=== PATIENT | female | born 1945 | race Caucasian/White ===

== ENCOUNTER 2016-06-06 21:01 | Inpatient (IN) | payer BC, OTHER ==
[~2016-06-06] VITALS: Ht 165.1 cm; Wt 70.8 kg
[2016-06-06 21:03] VITALS: BP_SYST 111
--- NOTE | 2016-06-06 21:03 | NUR ---
Patient to ER bed 6 to gown for evaluation. Side rails up. Report given to Yasmeen BUCKLEY.
--- NOTE | 2016-06-06 21:15 | NUR ---
Patient brought to ER by EMT for SOB. Patient has Hx of COPD. Tripoding, accessory mulce use, wheezing throughout, will continue to monitor.
--- NOTE | 2016-06-06 21:19 | NUR ---
ER MD Molina at bedside for evaluation
--- NOTE | 2016-06-06 21:20 | NUR ---
ER MD Molina at bedside for evaluation
[2016-06-06] MEDS ORDERED: methylPREDNISolone SOD SUCC/PF 62.5 MG/ML VIAL IVP ONE (21:30)
[2016-06-06] MEDS ORDERED: IPRATROPIUM/ALBUTEROL SULFATE 3 ML AMPUL.NEB INH ONE (21:30)
[2016-06-06] MEDS ORDERED: MAGNESIUM SULFATE 1 GM/2 ML VIAL IVP ONE (21:30)
[2016-06-06] MEDS ORDERED: MAGNESIUM SULFATE 50 ML IV ONE ×2 (21:43→21:45)
--- NOTE | 2016-06-06 22:00 | NUR ---
RT at bedside for breathing treatment
[2016-06-06] MEDS ORDERED: KETOROLAC TROMETHAMINE 30 MG VIAL IVP ONE (22:15)
[2016-06-06] MEDS ORDERED: FELO10TA3 PO (22:37)
[2016-06-06] MEDS ORDERED: LISI40TA4 PO (22:37)
[2016-06-06] MEDS ORDERED: LIP40 PO (22:38)
[2016-06-06] MEDS ORDERED: TRAZ-126 PO (22:38)
[2016-06-06] MEDS ORDERED: PRED10TA PO (22:39)
[2016-06-06] MEDS ORDERED: SPIRIVA INH (22:40)
[2016-06-06] MEDS ORDERED: BUDE6HFA INH (22:40)
[2016-06-06] MEDS ORDERED: HYDR12.55 PO (22:41)
[2016-06-06] MEDS ORDERED: ALBU8.5H8 INH (22:42)
[2016-06-06] MEDS ORDERED: ALPR0.5T96 PO (22:42)
[2016-06-06] MEDS ORDERED: HYDR-1189 PO (22:43)
[2016-06-06] MEDS ORDERED: ASPIRIN 81 MG TAB.CHEW PO ONE (23:00)
[2016-06-06] MEDS ORDERED: NACL 0.9% 1,000 ML IV ONE (23:00)
--- NOTE | 2016-06-06 23:25 | NUR ---
Jewel Setter at bedside for evaluation. Patient identified x2
--- NOTE | 2016-06-06 23:46 | NUR ---
RT at bedside for ABG draw. Patient identified x2
[2016-06-07] VITALS (8 sets, daily range): BP systolic 135–159
[2016-06-07] MEDS ORDERED: PROMETHAZINE 6.25 MG/ CODEINE 10 MG/ 5 ML PO ONE
[2016-06-07 00:07] LABS: BASOPHILS % (AUTO) 0.2 % (0.0-2.0); EOSINOPHILS # (AUTO) 0.1 K/uL (0.0-0.4); EOSINOPHILS % (AUTO) 0.9 % (0.0-4.0); HEMATOCRIT 35.8 % (36-48); HEMOGLOBIN 12.3 g/dL (12.0-16.0); LYMPHOCYTES # (AUTO) 0.8 K/uL (1.0-5.5); LYMPHOCYTES % (AUTO) 7.7 % (20.5-51.5); MEAN CORPUSCULAR HEMOGLOBIN 33 pg (27-31); MEAN CORPUSCULAR HGB CONC 34 % (32-36); MEAN CORPUSCULAR VOLUME 96 fL (79.0-98.0); MONOCYTES # (AUTO) 0.6 K/uL (0.0-1.0); MONOCYTES % (AUTO) 5.7 % (1.7-9.3); NEUTROPHILS # (AUTO) 8.8 K/uL (1.8-7.7); NEUTROPHILS % (AUTO) 85.5 % (40.0-70.0); PLATELET COUNT (AUTO) 241 K/uL (130-430); RED BLOOD CELL COUNT(AUTO) 3.73 MIL/uL (4.2-6.2); RED CELL DISTRIBUTION WIDTH 13.1 % (9.0-15.0); WHITE BLOOD COUNT (AUTO) 10.3 K/uL (4.8-10.8)
[2016-06-07 00:08] LABS: ABG TOTAL HEMOGLOBIN 13.2 G/dL (12.0-18.0); BLOOD GAS BASE EXCESS 1.4 mmol/L (-3.0-3.0); BLOOD GAS COHb% 0.4 % (0.5-1.5); BLOOD GAS HHB 3.6 % (0.0-6.0); BLOOD GAS PH 7.427 (7.350-7.450); BLOOD O2Hb% 96.4 % (94.0-97.0)
[2016-06-07 00:22] LABS: CALCIUM 8.4 mg/dL (8.4-11.0); CREATININE 0.94 mg/dL (0.55-1.30); POTASSIUM 3.7 mmol/L (3.5-5.1)
[2016-06-07 00:27] LABS: ALBUMIN 3.6 g/dL (3.4-4.8); TOTAL BILIRUBIN 0.2 mg/dL (0.0-1.0); TOTAL PROTEIN, SERUM 6.5 g/dL (6.4-8.3)
[2016-06-07 00:30] LABS: INR 0.9 (0.8-1.2); PROTHROMBIN TIME 9.9 SECS (9.5-12.5)
[2016-06-07] MEDS ORDERED: ASPIRIN 81 MG TAB.CHEW PO ONE (01:00)
[2016-06-07] MEDS ORDERED: ENOXAPARIN SODIUM 80 MG/0.8 ML SYRINGE SUBCUT ONE (01:00)
[2016-06-07] MEDS ORDERED: IPRATROPIUM/ALBUTEROL SULFATE 3 ML AMPUL.NEB INH ONE (01:30)
--- NOTE | 2016-06-07 01:36 | NUR ---
Patient will be admitted to care of DR WHITESIDE . Admitted to TELE IN unit. Will go to room 135. Belongings list completed. Summary report printed. Report given to RN.
--- NOTE | 2016-06-07 01:47 | NUR ---
Transfer to TELE 110B via ACLS protocol. Licensed nurse present. IV present no signs or symptoms of infiltration.
--- NOTE | 2016-06-07 01:55 | NUR ---
ADMISSION NOTE Received patient from ER via gurney. Patient admitted with diagnosis of COPD. Patient is awake, alert, oriented X4. Patient oriented to hospital room, call light, toileting, pain management and safety-teach back done. Patient informed that Nato RN will be her nurse and that their room number is 110B. Personal belongings checked and Belongings List documented. Call light within reach.
--- NOTE | 2016-06-07 02:19 | NUR ---
[facility] [phone] Addendum: 06/07/16 at 0221 by Nato Pittman RN Amended: Links added.
--- NOTE | 2016-06-07 02:50 | NUR ---
PT HYPERVENTILATE AFTER SITTING IN THE COMMODE PT HAVING HYPERVENTILATION AND ANXIETY ATTACK. "I CANT BREATH" . CHECKED O2 SAT @ 96% WITH 2L N/C. CALLED RT TO ADMIN BREATHING TX. STAYED WITH PT AND GAVE REASSURANCE. WILL CONT TO MONITOR.
[2016-06-07] MEDS: ALBUTEROL SULFATE 0.083% 2.5 MG/3 ML VIAL.NEB INH SCH ×6 (03:30→22:46)
[2016-06-07] MEDS: IPRATROPIUM BROM 0.5 MG/2.5 ML VIAL.NEB (ATROVENT) INH SCH ×6 (03:31→22:47)
--- NOTE | 2016-06-07 03:55 | NUR ---
ROUNDS PT IS RESTING HAVING SNACK @ THIS TIME. NO C/O PAIN AND NO DISTRESS NOTED. CALL LIGHT WITHIN REACH, WILL CONT TO MONITOR.
[2016-06-07] MEDS: methylPREDNISolone SOD SUCC/PF 62.5 MG/ML VIAL IVP SCH ×3 (05:05→22:24)
--- NOTE | 2016-06-07 06:11 | NUR ---
paged for Dr Albrecht, dialed . s/w Rosie.
--- NOTE | 2016-06-07 06:31 | NUR ---
PAGELorna AND SPOKE WITH DR WHITESIDE SPOKE WITH DR WHITESIDE VIA TEL AND REPORTED PT HAVING HEADACHE AND NOTED ANXIETY. THE GOOD DOCTOR SAID, " I WILL PUT THE ORDER IN".
[2016-06-07] MEDS ORDERED: LORazepam 1 MG TABLET PO PRN (06:45)
[2016-06-07] MEDS: HYDROcodone/ACETAMIN 5-325 MG TAB (NORCO/ VICODIN) PO PRN ×3 (06:51→20:51)
--- NOTE | 2016-06-07 06:53 | NUR ---
ADMIN NORCO AND ATIVAN PRN ADMIN NORCO PRN FOR PAIN AND ATIVAN FOR ANXIETY. WILL REASSESS AFTER 1 HOUR.
--- NOTE | 2016-06-07 07:02 | NUR ---
FINAL NOTES PT IS RESTING @ THIS TIME. NO S/S OF PAIN OR DISTRESS NOTED. V/S ARE WNL. ALL NEEDS MET AND ANTICIPATED BY NOC NURSES. BED IN LOW POSITION WITH CALL LIGHT WITHIN REACH. ENDORSED.
--- NOTE | 2016-06-07 08:00 | NUR ---
OPENING NOTE PATIENT IS AWAKE, ALERT. LABORED BREATHING. UNABLE TO FINISH COMPLETE SENTENCES WITHOUT BECOMING SOB. ON 2LPM NC O2. LUNGS HAVE WHEEZES THROUGHOUT. NO EDEMA, IV INFUSING, CALL LIGHT WITHIN REACH. EXPLAINED HOW TO USE THE PHONE TO CALL FOR ASSISTANCE. PATIENT STATES WHEN SHE IS UP TO USE COMMODE SHE FEELS SHE CAN BREATHE BETTER.
--- NOTE | 2016-06-07 10:11 | NUR ---
PATIENT RECEIVED SECOND BREATHING TREATMENT FOR THE DAY. STATES SHE IS HAVING INCREASED ANXIETY AND WANTS MORE ATIVAN. ADVISED PATIENT SHE MAY HAVE IT EVERY EIGHT HOURS.
--- NOTE | 2016-06-07 10:30 | NUR ---
DR WHITESIDE IN TO SEE PATIENT.
[2016-06-07] MEDS ORDERED: NON-FORMULARY MEDICATION (Felodipine (Felodipine Er) 10 MG) PO SCH (11:30)
--- NOTE | 2016-06-07 11:46 | NUR ---
CALLED CARDIOLOGY CONSULT TO DR HARDIN, DR SMITH G[employer]INICAL LEADER, RE: ELEVATED TROP. SPOKE TO ASHISH
--- NOTE | 2016-06-07 11:48 | NUR ---
CALLED PULM CONSULT TO DR BERGMAN, RE: COPD. SPOKE TO TYRON.
[2016-06-07] MEDS: LEVOFLOXACIN 500 MG/D5W 100 ML IV SCH (12:00)
[2016-06-07] MEDS: FLUTICASONE/VILANTEROL 1 EACH BLST.W.DEV INH SCH (12:00)
[2016-06-07] MEDS ORDERED: HYDROCHLOROTHIAZIDE 12.5 MG CAPSULE (HCTZ) PO ONE (12:30)
[2016-06-07] MEDS: guaiFENesin 200 MG/CODEINE 20 MG/ 10 ML UDC PO PRN ×2 (13:01→20:49)
--- NOTE | 2016-06-07 13:04 | NUR ---
DR HAM IN TO SEE PATIENT. PATIENT RECEIVING BREATHING TX.
[2016-06-07] MEDS: IPRATROPIUM BROM 0.5 MG/2.5 ML VIAL.NEB (ATROVENT) INH PRN (13:39)
[2016-06-07] MEDS: ALBUTEROL SULFATE 0.083% 2.5 MG/3 ML VIAL.NEB INH PRN (13:39)
[2016-06-07] MEDS: ALPRAZolam 0.25 MG TABLET PO PRN ×2 (13:51→21:58)
[2016-06-07] MEDS ORDERED: COMMUNICATION ORDER XX ONE (14:45)
--- NOTE | 2016-06-07 19:30 | NUR ---
notes received the pt from the day nurse ,pt a/a/ox4 dr jumana murillo.pt c/o sob and cough.respiratory called for a breathing treatment.monitor in place and shows SR.iv intact to lt forearm.,no redness or swelling noted. call light within reach.safety measures in progress.continue to monitor.
[2016-06-07] MEDS: BENZONATATE 100 MG CAPSULE (TESSALON) PO SCH (20:49)
[2016-06-07] MEDS: ATORVASTATIN 20 MG TABLET PO SCH (20:50)
[2016-06-07] MEDS: HYDROCHLOROTHIAZIDE 12.5 MG CAPSULE (HCTZ) PO SCH (20:50)
[2016-06-07] MEDS: LACTOBACILLUS RHAMNOSUS GG 1 CAP CAPSULE PO SCH (20:51)
[2016-06-07] MEDS: traZODone HCL 50 MG TABLET (DESYREL) PO SCH (20:54)
[2016-06-07] MEDS ORDERED: NON-FORMULARY MEDICATION (Hydrochlorothiazide 1 TAB) PO SCH (21:00)
[2016-06-07] MEDS ORDERED: BUDESONIDE/FORMOTEROL 160-4.5 mCg, 6 GM INHALER INH SCH (21:00)
--- NOTE | 2016-06-07 21:52 | NUR ---
notes pt watching tv with no complaints.will continue to monitor.
--- NOTE | 2016-06-07 23:23 | NUR ---
notes pt sleeping,call light within reach .no respiratory difficulty noted.continue to monitor.
[2016-06-08] VITALS (7 sets, daily range): BP systolic 110–160
--- NOTE | 2016-06-08 00:36 | NUR ---
notes awake,alert c/o sob respiratory therapist called to give a treatment.
[2016-06-08] MEDS: guaiFENesin 200 MG/CODEINE 20 MG/ 10 ML UDC PO PRN ×5 (00:55→20:08)
[2016-06-08] MEDS: HYDROcodone/ACETAMIN 5-325 MG TAB (NORCO/ VICODIN) PO PRN ×4 (00:55→17:00)
--- NOTE | 2016-06-08 01:24 | NUR ---
MD OG CALLED [facility] AT SPOKE WITH DR.JANDIAL GUILLORY RAJNISH INFORMATION RECEPTIONIST.
--- NOTE | 2016-06-08 01:25 | NUR ---
NOTES PT WAS GIVEN NORCO FOR A C/O BACK PAIN ,NOW C/O CHEST PRESSURE MONITOR SHOWS A FIB UNCONTROLLED AT A RATE OF 130.CALL PLACED TO DR WHITESIDE.
--- NOTE | 2016-06-08 01:35 | NUR ---
NOTES MONITOR NOW SHOWS SR WITH PACS AT A RATE OF 108 PT STILL C/O PRESSURE AND CHEST PAIN. CALL #[address] WHITESIDE.
--- NOTE | 2016-06-08 01:38 | NUR ---
PAGED PAGED PÉREZ WIN AT [phone] SPOKE WITH USMAN.
--- NOTE | 2016-06-08 01:40 | NUR ---
NOTES SPOKE WITH DR WHITESIDE NEW ORDERS TAKEN. EKG STAT CALLED.
--- NOTE | 2016-06-08 01:47 | NUR ---
NOTES STAT EKG WAS DONE BY THE RESPIRATORY THERAPIST.RN IS AWARE OF THE MORPHINE ORDER,PT WAS TOLD ABOUT THE EKG AND THE NEW ORDER FOR MORPHINE AND WAS INSTRUCTED TO CALL FOR THE NURSE WHEN SHE NEEDS TO GET UP TO THE COMMODE.
[2016-06-08] MEDS: MORPHINE 2 MG/ML INJ. SYRINGE IVP PRN ×3 (01:53→18:54)
--- NOTE | 2016-06-08 02:08 | NUR ---
ADMIN MORPHINE ADMIN MORPHINE FOR 7/10 L ARMPIT PAIN. WILL REASSESS AFTER 1 HOUR.
--- NOTE | 2016-06-08 02:27 | NUR ---
notes pt is asymptomatic now.and is smiling.pt states now she can sleep.call light within reach continue to monitor.
--- NOTE | 2016-06-08 03:19 | NUR ---
notes pt resting with eyes closed ,call light within reach .continue to monitor.
[2016-06-08] MEDS: IPRATROPIUM BROM 0.5 MG/2.5 ML VIAL.NEB (ATROVENT) INH SCH ×6 (03:53→23:23)
[2016-06-08] MEDS: ALBUTEROL SULFATE 0.083% 2.5 MG/3 ML VIAL.NEB INH SCH ×6 (03:53→23:23)
--- NOTE | 2016-06-08 04:28 | NUR ---
notes pt awake and states she wet the bed.assisted up to the commode,linen changed pt cleaned.assisted back to bed.continue to monitor.
--- NOTE | 2016-06-08 05:06 | NUR ---
notes pt awake,alert.c/o back pain and cough,medicated with [place] and Robitussin continue to monitor.
[2016-06-08] MEDS: methylPREDNISolone SOD SUCC/PF 62.5 MG/ML VIAL IVP SCH ×3 (05:51→23:37)
[2016-06-08] MEDS: BUDESONIDE 0.5 MG/2 ML AMPUL.NEB INH SCH ×2 (06:00→19:54)
[2016-06-08] MEDS: ALPRAZolam 0.25 MG TABLET PO PRN ×3 (06:01→19:41)
--- NOTE | 2016-06-08 06:28 | NUR ---
closing notes. pt c/o anxiety,Xanax given po as ordered.respiratory therapist here to give a treatment.will endorse the care of the pt to the day nurse.
--- NOTE | 2016-06-08 07:30 | NUR ---
AM ROUNDS Pt A/O x4, c/o chest pain since early this morning...Noc shift nurse already spoke with Dr. Albrecht and orders were given...IVF infusing well to LH...Pt on 2L N/C...Covering nurse will medicate with IV pain medication...Call light/phone w/in reach...Will cont to monitr
[2016-06-08] MEDS: IPRATROPIUM BROM 0.5 MG/2.5 ML VIAL.NEB (ATROVENT) INH PRN ×2 (08:55→18:39)
[2016-06-08] MEDS: ALBUTEROL SULFATE 0.083% 2.5 MG/3 ML VIAL.NEB INH PRN ×2 (08:55→18:38)
[2016-06-08] MEDS ORDERED: PREDNISONE 10 MG TABLET PO SCH (09:00)
[2016-06-08] MEDS ORDERED: TIOTROPIUM BROMIDE 18 mcg/INHALATION (CAPSULE) INH SCH (09:00)
[2016-06-08] MEDS: HYDROCHLOROTHIAZIDE 12.5 MG CAPSULE (HCTZ) PO SCH ×2 (09:51→20:37)
[2016-06-08] MEDS: amLODIPine BESYLATE 10 MG TABLET PO SCH (09:52)
[2016-06-08] MEDS: LACTOBACILLUS RHAMNOSUS GG 1 CAP CAPSULE PO SCH ×2 (09:52→20:38)
[2016-06-08] MEDS: BENZONATATE 100 MG CAPSULE (TESSALON) PO SCH ×3 (09:52→20:37)
[2016-06-08] MEDS: LISINOPRIL 20 MG TABLET PO SCH (09:52)
--- NOTE | 2016-06-08 11:07 | NUR ---
ROUNDS PT ANXIOUS...SITTING UP IN BED...SISTER AT BEDSIDE...WILL CONT TO MONITOR...
[2016-06-08] MEDS: LEVOFLOXACIN 500 MG/D5W 100 ML IV SCH (12:00)
--- NOTE | 2016-06-08 12:40 | NUR ---
ROUNDS PT SITTING UP IN BED, HAVING LUNCH...KIMBERLY AT BEDSIDE...WILL CONT TO MONITOR Addendum: 06/08/16 at 1241 by Reema Hooper LVN ALLY PT
--- NOTE | 2016-06-08 12:41 | NUR ---
ROUNDS PT STABLE...SITTING UP IN BED VISITING WITH FAMILY
[2016-06-08] MEDS ORDERED: ALPRAZolam 0.25 MG TABLET PO ONE (14:00)
[2016-06-08] MEDS: FLUTICASONE/VILANTEROL 1 EACH BLST.W.DEV INH SCH (14:13)
--- NOTE | 2016-06-08 15:37 | NUR ---
ROUNDS PT STABLE...SITTING UP IN BED. AT BEDSIDE...WILL CONT TO [id number]
--- NOTE | 2016-06-08 16:53 | NUR ---
ROUNDS PT APPEARS TO BE RESTING COMFORTABLY... WALKED IN AND PT WOKE UP...PT DENIES PAIN AT THIS TIME
--- NOTE | 2016-06-08 17:01 | NUR ---
STALIN GIVEN...SCANNER NOT WORKING
--- NOTE | 2016-06-08 18:49 | NUR ---
PAIN TO LEFT ARMPIT/BREAST AREA PT HOLDING HER ARMPIT..C/O 12/29 PAIN...STATES THAT MORPHINE HELPS HER...VITAL SIGNS TAKEN..169/104,142..COVERING NURSE WILL MEDICATE.. AT BEDSIDE
--- NOTE | 2016-06-08 19:30 | NUR ---
notes received the pt from the day nurse,pt having alot of anxiety with sob pulse ox 77% hr 140 resiratory therapist called and started a breathing treatment,Xanax given po for anxiety .rn is at the bedside.call light within reach safety measures in progress monitor shows ST continue to monitor.
--- NOTE | 2016-06-08 20:06 | NUR ---
notes pt feeling better,Robitussin given for a c/o cough.
[2016-06-08] MEDS: traZODone HCL 50 MG TABLET (DESYREL) PO SCH (20:37)
[2016-06-08] MEDS: ATORVASTATIN 20 MG TABLET PO SCH (20:38)
--- NOTE | 2016-06-08 21:20 | NUR ---
NOTES PT AWAKE SMILING NO C/O SOB WATCHING TV .NO DYSPNEA NOTED.O2 VIA NC IN PLACE AT 2L/MIN. CONTINUE TO MONITOR.
--- NOTE | 2016-06-08 22:40 | NUR ---
NOTES DR ASKEW HERE TO SEE THE PT.
--- NOTE | 2016-06-08 23:12 | NUR ---
NOTES PT AWAKEN FOR VS ,PT STATES SHE IS FEELING GOOD AFTER SLEEPING FOR A LITTLE BIT.CONTINUE TO MONITOR,.
--- NOTE | 2016-06-08 23:49 | NUR ---
NOTES PT C/O BACK PAIN AND REQUESTING NORCO,WENT TO GIVE THE NORCO AND THE PT CHANGED HER MIND AND IS REQUESTING MORPHINE,rn WAS NOTIFIED.
[2016-06-09] MEDS: MORPHINE 2 MG/ML INJ. SYRINGE IVP PRN ×5 (00:01→19:53)
[2016-06-09 00:43] VITALS: BP_SYST 126
--- NOTE | 2016-06-09 01:35 | NUR ---
NOTES PT RESTING WITH EYES CLOSED,NO DYSPNEA NOTED.CALL LIGHT WITHIN REACH.CONTINUE TO MONITOR.
[2016-06-09] MEDS: IPRATROPIUM BROM 0.5 MG/2.5 ML VIAL.NEB (ATROVENT) INH PRN (01:50)
[2016-06-09] MEDS: ALBUTEROL SULFATE 0.083% 2.5 MG/3 ML VIAL.NEB INH PRN (01:50)
[2016-06-09] MEDS: guaiFENesin 200 MG/CODEINE 20 MG/ 10 ML UDC PO PRN ×3 (02:13→20:48)
--- NOTE | 2016-06-09 03:12 | NUR ---
NOTES PT RESTING WITH EYES CLOSED ,NO DYSPNEA NOTED.CONTINUE TO MONITOR.
[2016-06-09] MEDS: IPRATROPIUM BROM 0.5 MG/2.5 ML VIAL.NEB (ATROVENT) INH SCH ×6 (03:55→23:25)
[2016-06-09] MEDS: ALBUTEROL SULFATE 0.083% 2.5 MG/3 ML VIAL.NEB INH SCH ×6 (03:55→23:24)
[2016-06-09 04:26] VITALS: BP_SYST 126
[2016-06-09] MEDS: methylPREDNISolone SOD SUCC/PF 62.5 MG/ML VIAL IVP SCH ×3 (05:24→21:55)
[2016-06-09] MEDS: ALPRAZolam 0.25 MG TABLET PO PRN ×3 (05:54→22:09)
--- NOTE | 2016-06-09 06:34 | NUR ---
CLOSING NOTES BLOOD WAS DRAWN BY THE LAB PT WATCHING TV.WILL ENDORSE THE CARE OF THE PT TO THE DAY NURSE.
--- NOTE | 2016-06-09 07:35 | NUR ---
HANDOFF ROUNDS AT PATIENT BEDSIDE. NOC NURSE NOTES TURNING PATIENT O2 UP. WILL MONITOR.
[2016-06-09] MEDS: BUDESONIDE 0.5 MG/2 ML AMPUL.NEB INH SCH ×2 (08:06→19:07)
--- NOTE | 2016-06-09 08:19 | NUR ---
VITAL SIGNS AND 02 ON RESPIRATORY REMAINS UP. WILL TURN DOWN SOON POSSIBLE.
[2016-06-09 08:20] VITALS: BP_SYST 163
--- NOTE | 2016-06-09 08:43 | NUR ---
Nutrition Update Jay Jay Scale 17 noted. Pt admitted for COPD. Diet: 2 gm Na BMI: 26 kg/m2 RD to follow per nutrition care standards.
[2016-06-09] MEDS: FLUTICASONE/VILANTEROL 1 EACH BLST.W.DEV INH SCH (09:22)
[2016-06-09] MEDS: HYDROCHLOROTHIAZIDE 12.5 MG CAPSULE (HCTZ) PO SCH ×2 (09:23→20:49)
[2016-06-09] MEDS: LACTOBACILLUS RHAMNOSUS GG 1 CAP CAPSULE PO SCH ×2 (09:23→20:48)
[2016-06-09] MEDS: LISINOPRIL 20 MG TABLET PO SCH (09:23)
[2016-06-09] MEDS: BENZONATATE 100 MG CAPSULE (TESSALON) PO SCH ×3 (09:23→20:51)
[2016-06-09] MEDS: amLODIPine BESYLATE 10 MG TABLET PO SCH (09:25)
--- NOTE | 2016-06-09 09:45 | NUR ---
Patient prn pain medication at this time. Discussed side effects of sob. Patient says high tolerance.
--- NOTE | 2016-06-09 10:46 | NUR ---
PRN cough syrup give. Patient coughing / choking on syrup.
[2016-06-09] MEDS: NYSTATIN 500,000 UNITS/5 ML UDC PO SCH ×3 (12:00→17:36)
[2016-06-09 12:10] VITALS: BP_SYST 163
--- NOTE | 2016-06-09 12:52 | NUR ---
Call to MD davidson: heart rate 130-150. orthopedically impaired teacher MD Diallo paged.
[2016-06-09] MEDS: LEVOFLOXACIN 500 MG/D5W 100 ML IV SCH (13:05)
--- NOTE | 2016-06-09 13:05 | NUR ---
Rounds to patient. Patient reqeust for xanax. Explained could give at the end of the hour.
--- NOTE | 2016-06-09 13:59 | NUR ---
Rounds to patient. Given prn xanax as requested.
--- NOTE | 2016-06-09 14:18 | NUR ---
Assist of patient off commode. Given towels to wipe front of carlos area. Wipe of back of rectal area complete. Medium brown bm out now.
--- NOTE | 2016-06-09 15:14 | NUR ---
Patient rounds. Needs met at this time. Will monitor for other needs. Given prn pain medication as requested. Flushed and started IV antibiotics.
[2016-06-09 16:25] VITALS: BP_SYST 162
[2016-06-09 19:30] VITALS: BP_SYST 157
--- NOTE | 2016-06-09 19:30 | NUR ---
NOTES RECEIVED THE PT FROM THE DAY NURSE.PT RECEIVING A BREATHING TREATMENT.ASKING FOR MORPHINE RN WAS NOTIFIED.MONITOR IN PLACE AND SHOWS ST CALL LIGHT WITHIN REACH SAFETY MEASURES IN PLACE.CONTINUE TO MONITOR..
[2016-06-09] MEDS: ATORVASTATIN 20 MG TABLET PO SCH (20:48)
[2016-06-09] MEDS: traZODone HCL 50 MG TABLET (DESYREL) PO SCH (20:49)
--- NOTE | 2016-06-09 22:02 | NUR ---
NOTES PT WATCHING TV .C/O ANXIETY AND IS ASKING FOR XANAX.WILL MEDICATE ORDERED.
--- NOTE | 2016-06-09 23:30 | NUR ---
NOTES PT AWAKE ALERT.NO DYSPNEA NOTED.CONTINUE TO MONITOR.
[2016-06-10] VITALS (7 sets, daily range): BP systolic 121–170
[2016-06-10] MEDS: NYSTATIN 500,000 UNITS/5 ML UDC PO SCH ×5 (00:20→23:29)
[2016-06-10] MEDS: MORPHINE 2 MG/ML INJ. SYRINGE IVP PRN ×5 (00:37→20:15)
--- NOTE | 2016-06-10 05:21 | NUR ---
notes pt awake ,alert asking for morphine.RN was notified.
[2016-06-10] MEDS: methylPREDNISolone SOD SUCC/PF 62.5 MG/ML VIAL IVP SCH (05:42)
[2016-06-10] MEDS: ALPRAZolam 0.25 MG TABLET PO PRN ×3 (06:49→23:30)
--- NOTE | 2016-06-10 07:15 | NUR ---
Handoff rounds at patient bedside. Notes insomnia. Says at home she sleeps two hours.
[2016-06-10] MEDS: ALBUTEROL SULFATE 0.083% 2.5 MG/3 ML VIAL.NEB INH SCH ×4 (07:27→20:44)
[2016-06-10] MEDS: IPRATROPIUM BROM 0.5 MG/2.5 ML VIAL.NEB (ATROVENT) INH SCH ×4 (07:27→20:45)
[2016-06-10] MEDS: BUDESONIDE 0.5 MG/2 ML AMPUL.NEB INH SCH ×2 (07:39→20:45)
--- NOTE | 2016-06-10 08:00 | NUR ---
Vital signs for patient.
[2016-06-10] MEDS: FLUTICASONE/VILANTEROL 1 EACH BLST.W.DEV INH SCH (10:08)
[2016-06-10] MEDS: LACTOBACILLUS RHAMNOSUS GG 1 CAP CAPSULE PO SCH ×2 (10:08→21:04)
[2016-06-10] MEDS: LISINOPRIL 20 MG TABLET PO SCH (10:11)
[2016-06-10] MEDS: HYDROCHLOROTHIAZIDE 12.5 MG CAPSULE (HCTZ) PO SCH ×2 (10:12→21:04)
[2016-06-10] MEDS: amLODIPine BESYLATE 10 MG TABLET PO SCH (10:15)
[2016-06-10] MEDS: BENZONATATE 100 MG CAPSULE (TESSALON) PO SCH ×3 (10:15→21:04)
--- NOTE | 2016-06-10 10:40 | NUR ---
PATIENT REQUEST FOR ANXIETY MEDICATION. REQUEST TO DOCTOR MADALYN. NOTIFIED BY MD PATIENT IS IMPROVING. ADDITIONAL MEDICATION NOT NEEDED AT THIS TIME.
--- NOTE | 2016-06-10 12:00 | NUR ---
ADR assist with prescribing meds for pain at this time as requested by patient.
[2016-06-10] MEDS: LEVOFLOXACIN 500 MG/D5W 100 ML IV SCH (14:24)
[2016-06-10] MEDS: methylPREDNISolone SOD SUCC 40 MG/ML VIAL IVP SCH ×2 (14:24→21:56)
[2016-06-10] MEDS: ALBUTEROL SULFATE 0.083% 2.5 MG/3 ML VIAL.NEB INH PRN (16:00)
[2016-06-10] MEDS: IPRATROPIUM BROM 0.5 MG/2.5 ML VIAL.NEB (ATROVENT) INH PRN (16:00)
--- NOTE | 2016-06-10 16:38 | NUR ---
KIMBERLY OF PATIENT SIGNED FOR BELONGING LIST. NOTIFIED AMBULANCE WOULD ARRIVE AT 4:30 P.M. AMBULANCE GIVEN REPORT. CALL TO [facility] FOR REPORT. Addendum: 06/10/16 at 1640 by Alvaro Valentine RN ERROR INCORRECT CHART
--- NOTE | 2016-06-10 16:40 | NUR ---
PATIENT ROUNDS FOR ADMIN OF PAIN MED REQUESTED. NEEDS MET AT THIS TIME.
--- NOTE | 2016-06-10 17:06 | NUR ---
Patient rounds. Says back is causing her more pain left lower sciatic.
--- NOTE | 2016-06-10 18:58 | NUR ---
Patient request for air mattress inflation. Mattress engaged. Will endorse for noc nurse. Patient attempting to hold on xanax to help her respiratory status. Wants trazadone and morphine at bedtime and 8pm respectively.
--- NOTE | 2016-06-10 19:40 | NUR ---
INITIAL NOTE Patient resting on the bed. Respiration even and unlabored. No acute distress. On O2 3L/min via NC. AO x 4. Per patient wanted the pain meds around clock. Skin warm and dry to touch. SL intact to left hand, no redness, no swelling. at bedside. Discussed the safety issue, use call light when need help, and plan of care, verbally understanding. Safety measure maintained. Bed in low position, side rails up. Call light within reached. Will continue to monitor.
--- NOTE | 2016-06-10 20:15 | NUR ---
MORPHINE GIVEN Patient c/o lower back pain 11/29, Morphine 2mg IVP given as ordered. No acute distress. On O2 3L/min via NC. Safety measure maintained. Call light within reached. Bed in low position, side rails up. Will continue to monitor.
[2016-06-10] MEDS: traZODone HCL 50 MG TABLET (DESYREL) PO SCH (21:03)
[2016-06-10] MEDS: ATORVASTATIN 20 MG TABLET PO SCH (21:04)
--- NOTE | 2016-06-10 22:20 | NUR ---
ROUND Patient resting on the bed with eyes closed. Respiration even and unlabored. No acute distress. Continue ton O2 via NC. Safety measure maintained. Call light within reached. Will continue to monitor.
[2016-06-11] MEDS: MORPHINE 2 MG/ML INJ. SYRINGE IVP PRN ×3 (00:20→08:57)
[2016-06-11] MEDS: guaiFENesin 200 MG/CODEINE 20 MG/ 10 ML UDC PO PRN ×2 (00:26→04:18)
[2016-06-11 00:50] VITALS: BP_SYST 151
--- NOTE | 2016-06-11 02:10 | NUR ---
ROUND Patient resting on the bed with eyes closed. Respiration even and unlabored. No acute distress. Continue on O2 via NC. Safety measure maintained. Call light within reached. Will continue to monitor.
--- NOTE | 2016-06-11 03:10 | NUR ---
ASSISTED TO USE BEDSIDE COMMODE Assisted patient to use bedside commode. No acute distress. On O2 3L/min via NC. Safety measure maintained. Call light within reached. Continue to monitor.
[2016-06-11] MEDS: ALBUTEROL SULFATE 0.083% 2.5 MG/3 ML VIAL.NEB INH SCH ×4 (03:24→15:01)
[2016-06-11] MEDS: IPRATROPIUM BROM 0.5 MG/2.5 ML VIAL.NEB (ATROVENT) INH SCH ×4 (03:24→15:01)
[2016-06-11 04:00] VITALS: BP_SYST 128
--- NOTE | 2016-06-11 04:19 | NUR ---
MORPHINE GIVEN Patient c/o lower back pain 10/29, Morphine 2mg IVP given as ordered. No acute distress. On O2 3L/min via NC. Safety measure maintained. Call light within reached. Bed in low position, side rails up. Will continue to monitor.
--- NOTE | 2016-06-11 05:20 | NUR ---
ROUND Patient resting on the bed with eyes closed. Respiration even and unlabored. No acute distress. Continue on O2 via NC. Safety measure maintained. Call light within reached. Continue to monitor.
[2016-06-11] MEDS: methylPREDNISolone SOD SUCC 40 MG/ML VIAL IVP SCH ×2 (06:12→14:39)
[2016-06-11] MEDS: NYSTATIN 500,000 UNITS/5 ML UDC PO SCH ×2 (06:12→12:54)
--- NOTE | 2016-06-11 06:50 | NUR ---
CLOSING NOTE Patient resting on the bed. Respiration even and unlabored. No acute distress. Continue on O2 via NC. Skin warm and dry to touch. SL intact to left hand, no redness, no swelling. Pain med given around clock. All meds met. Hourly rounding during shift. Safety measure maintained. Bed in low position, side rails up. Call light within reached. Will endorse to morning shift nurse.
[2016-06-11 08:00] VITALS: BP_SYST 152
--- NOTE | 2016-06-11 08:43 | NUR ---
OPENING NOTE RECEIVED REPORT FROM NIGHT NURSE, PATIENT IS RESTING COMFORTABLY IN BED WITH NO NOTED DISTRESS, DISCOMFORT OR SOB. PATIENT IS ALERT AND ORIENTED AND ABLE TO COMMUNICATE NEEDS TO STAFF. PATIENT IS AMBULATORY WITH ASSISTANCE AND IS EDUCATED TO CALL BEFORE GETTING UP. BED IS IN LOWEST POSITION AND CALL LIGHT IS WITHIN REACH. BSC IS NEAR AND PATIENT IS ON O2@2L VIA N/C. WILL CONTINUE TO MONITOR.
[2016-06-11] MEDS: FLUTICASONE/VILANTEROL 1 EACH BLST.W.DEV INH SCH (08:59)
[2016-06-11] MEDS: LACTOBACILLUS RHAMNOSUS GG 1 CAP CAPSULE PO SCH (08:59)
[2016-06-11] MEDS: HYDROCHLOROTHIAZIDE 12.5 MG CAPSULE (HCTZ) PO SCH (09:00)
[2016-06-11] MEDS: LISINOPRIL 20 MG TABLET PO SCH (09:00)
[2016-06-11] MEDS: BENZONATATE 100 MG CAPSULE (TESSALON) PO SCH ×2 (09:01→14:39)
[2016-06-11] MEDS: amLODIPine BESYLATE 10 MG TABLET PO SCH (09:01)
[2016-06-11] MEDS: BUDESONIDE 0.5 MG/2 ML AMPUL.NEB INH SCH (09:35)
[2016-06-11] MEDS: LEVOFLOXACIN 500 MG TABLET PO SCH ×2 (09:50→09:51)
[2016-06-11] MEDS ORDERED: ENOXAPARIN SODIUM 40 MG/0.4 ML SYRINGE SUBCUT ONE (10:00)
--- NOTE | 2016-06-11 11:00 | NUR ---
NOTE DR WHITESIDE WAS IN TO SEE THE PATIENT AND NEW ORDER TO DISCHARGE PATIENT TO TCU AT [facility] WHICH WAS NOTED AND CARRIED OUT. PATIENT IS AWARE AND SIGNED CONSENT TO TRANSFER WAS OBTAINED. PATIENT IS RESTING COMFORTABLY IN BED WITH NO NOTED DISTRESS, DISCOMFORT OR SOB. BED IS IN LOWEST POSITION AND CALL LIGHT IS WITHIN REACH. FAMILY IS AT BEDSIDE. WILL CONTINUE TO MONITOR. PICK IS AT 1500 AND PATIENT IS AWARE
[2016-06-11 11:55] VITALS: BP_SYST 124
[2016-06-11 12:02] VITALS: BP_SYST 124
--- NOTE | 2016-06-11 12:31 | NUR ---
NOTE PATIENT IS RESTING IN BED COMFORTABLY WITH NO COMPLAINTS OF PAIN, NO NOTED DISTRESS, DISCOMFORT OR SOB. BED IS IN LOWEST POSITION AND CALL LIGHT IS WITHIN REACH. FAMILY IS AT BEDSIDE AND WILL CONTINUE TO MONITOR.
[2016-06-11] MEDS: HYDROcodone/ACETAMIN 5-325 MG TAB (NORCO/ VICODIN) PO PRN (12:54)
--- NOTE | 2016-06-11 12:59 | NUR ---
HCP/PA: Wily Urena patient assigned to room 102-2 at [facility] at [address] RN to report [phone] [place] [phone] on will call.
[2016-06-11] MEDS: ALBUTEROL SULFATE 0.083% 2.5 MG/3 ML VIAL.NEB INH PRN ×2 (14:00→14:01)
[2016-06-11] MEDS: IPRATROPIUM BROM 0.5 MG/2.5 ML VIAL.NEB (ATROVENT) INH PRN (14:01)
--- NOTE | 2016-06-11 15:00 | NUR ---
DISCHARGE PATIENT WAS GIVEN TRANSITION CARE AND PATIENT VERBALIZED UNDERSTANDING, REPORT WAS GIVEN TO MARGARITA AT TCU. PATIENT NEEDED A BREATHING TREATMENT AND ANXIETY MEDICATION BEFORE THE PATIENT LEFT WITH EMT. VITAL SIGNS WERE TAKEN AND WERE WITHIN NORMAL RANGE EXCEPT HR WAS ELEVATED BECAUSE PATIENT WAS ANXIOUS AND HAD A BREATHING TREATMENT. PATIENT'S TOOK ALL OF THE BELONGINGS WITH HIM AND PATIENT LEFT IN STABLE CONDITION WITH NO NOTED DISTRESS OR COMPLAINTS OF PAIN.
[2016-06-11] MEDS: ALPRAZolam 0.25 MG TABLET PO PRN (15:22)
[2016-06-12] MEDS ORDERED: ENOXAPARIN SODIUM 40 MG/0.4 ML SYRINGE SUBCUT SCH (09:00)
== END 2016-06-11 15:35 | DRG 189 ==
LOC: SED 21:01 → STU 06-07 01:39 → SMU 06-10 10:30
PROVIDERS: ADMIT Internal Medicine Hospice and Palliative Medicine; ATTEND Internal Medicine Hospice and Palliative Medicine
DX: J96.20 Acute and chronic respiratory failure, unspecified whether with hypoxia or hypercapnia (principal); I21.3 ST elevation (STEMI) myocardial infarction of unspecified site; J44.1 Chronic obstructive pulmonary disease with (acute) exacerbation; I10 Essential (primary) hypertension; G89.29 Other chronic pain; J98.01 Acute bronchospasm; I25.10 Atherosclerotic heart disease of native coronary artery without angina pectoris; F41.9 Anxiety disorder, unspecified; I25.2 Old myocardial infarction; Z90.13 Acquired absence of bilateral breasts and nipples; Z90.710 Acquired absence of both cervix and uterus; Z99.81 Dependence on supplemental oxygen; Z88.8 Allergy status to other drugs, medicaments and biological substances; Z88.1 Allergy status to other antibiotic agents; Z91.040 Latex allergy status; Z87.891 Personal history of nicotine dependence
CPT/HCPCS: 36415; 36600; 70450-TC; 71010; 80053; 82803-TC; 84484; 85025; 85610-TC; 85730-TC; 93005; 94640; 94760; 96365; 96366; 96372; 96375; 97530-GP; 99285; J1030; J1650; J1885; J1956; J2270; J2930; J3475; J7030